=== PATIENT | female | born 1960 | race Hispanic/Latino ===

== ENCOUNTER → 2018-04-11 | Outpatient (CLI) | payer OTHER | END | disposition home or self-care (01) | LOC: RAH 13:08 | PROVIDERS: ATTEND Nurse Practitioner Family | DX: Z12.31 Encounter for screening mammogram for malignant neoplasm of breast (principal) | CPT/HCPCS: 77067 ==

== ENCOUNTER → 2020-07-28 | Outpatient (CLI) | payer OTHER | END | disposition home or self-care (01) | LOC: OIH 08:22 | PROVIDERS: ATTEND Internal Medicine | DX: M85.88 Other specified disorders of bone density and structure, other site (principal); M47.816 Spondylosis without myelopathy or radiculopathy, lumbar region; M19.91 Primary osteoarthritis, unspecified site; M25.78 Osteophyte, vertebrae | CPT/HCPCS: 72100; 72202 ==

== ENCOUNTER → 2020-12-28 | Outpatient (CLI) | payer OTHER | END | disposition home or self-care (01) | LOC: RAH 17:06 | PROVIDERS: ATTEND Nurse Practitioner Family | DX: Z12.31 Encounter for screening mammogram for malignant neoplasm of breast (principal) | CPT/HCPCS: 77067 ==

== ENCOUNTER → 2023-10-07 | Outpatient (CLI) | payer BC, OTHER | END | disposition home or self-care (01) | LOC: RAH 14:39 | PROVIDERS: ATTEND Nurse Practitioner Family | DX: Z12.31 Encounter for screening mammogram for malignant neoplasm of breast (principal) | CPT/HCPCS: 77067 ==

== ENCOUNTER → 2023-11-13 | Outpatient (CLI) | payer BC | END | disposition home or self-care (01) | LOC: RAH 15:01 | PROVIDERS: ATTEND Nurse Practitioner Family | DX: M47.812 Spondylosis without myelopathy or radiculopathy, cervical region (principal); M48.03 Spinal stenosis, cervicothoracic region; M54.2 Cervicalgia | CPT/HCPCS: 72141 ==

== ENCOUNTER → 2024-11-02 | Outpatient (CLI) | payer BC ==
[~2024-11-02] MED LIST: IOHEXOL-350 75 ML VIAL IV ONE
--- NOTE | 2024-11-02 16:59 | HMCIMG ---
CT ABDOMEN/PELVIS W/WO CONTRAS REASON: Unspecified abdominal pain COMPARISON: None. TECHNIQUE: Images are obtained from lung bases through the symphysis pubis before and after IV contrast, 75 cc Omnipaque 350. Oral contrast was performed as well. FINDINGS: Lung bases are clear. There are breast implants, only partially visualized, no evidence of rupture. There are no focal liver lesions. There are normal-appearing kidneys.. Spleen and pancreas appear unremarkable. The gallbladder appears normal as well. Bowel loops appear unremarkable. There has been a previous appendectomy. There is no evidence of free fluid or intraperitoneal air. There are no focal fluid collections. Aorta and retroperitoneum appear normal as do pelvic soft tissue structures. Uterus is been removed. The anterior abdominal wall is intact. 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 Vertebral bodies appear otherwise unremarkable as do remaining osseous structures. IMPRESSION: 1. No acute finding in the abdomen or pelvis. 2. 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 CT was performed with one or more following dose reduction techniques: automated exposure control, adjustment of the mA and kv according to patient's size, or use of a iterative reconstruction technique.
== END | disposition home or self-care (01) ==
LOC: RAH 09:57
PROVIDERS: ATTEND Nurse Practitioner Family
DX: R10.9 Unspecified abdominal pain (principal); Z98.82 Breast implant status; Z90.89 Acquired absence of other organs
CPT/HCPCS: 74178; Q9967

== ENCOUNTER → 2025-02-15 | Outpatient (CLI) | payer BC | END | disposition home or self-care (01) | LOC: RAH 10:39 | PROVIDERS: ATTEND Nurse Practitioner Family | DX: Z12.31 Encounter for screening mammogram for malignant neoplasm of breast (principal) | CPT/HCPCS: 77067 ==

== ENCOUNTER → 2025-03-31 | Outpatient (CLI) | payer BC ==
--- NOTE | 2025-03-31 11:22 | HMCIMG ---
BILATERAL BREAST ULTRASOUND: CLINICAL HISTORY: Follow-up for mammogram from 02/15/2025. Finding: Real-time examination of the both breasts demonstrates heterogeneous echotexture throughout both the breasts without evidence of focal solid or cystic masses. Both axillary region has benign-appearing lymph nodes on the right it measures 1.8 x 0.7 x 1.4 cm. On the left and measures 0.9 x 0.6 x 0.9 cm. Patient has bilateral breast implants in place IMPRESSION: Dense breasts with no mass seen. I would recommend annual mammography with tomography with bilateral breast sonogram. FINAL ASSESSMENT: ACR: BI-RAD- 2. Benign Finding.
--- NOTE | 2025-04-01 07:52 | HMCIMG ---
DIGITAL both DIAGNOSTIC MAMMOGRAM with Jada views Technique: The digital mammographic examination of bilateral breasts in craniocaudal, mediolateral oblique views along with CAD was obtained. Jada views of both breasts were also pain. Bilateral breast sonogram was also obtained. History: This is a 64 years year-old female 2, para2 Ab0 . Patient has no family history of breast cancer. Patient has no complaint Reference:Prior mammogram from 02/15/2025, 11/06/2023, 12/28/2020 and 04/11/2018 are available for comparison.. Breast composition: Breast composition C: The breasts are heterogeneously dense, which may obscure small masses. Finding: The digital mammographic examination of both breasts breasts in craniocaudal and mediolateral oblique view along with CAD demonstrates submuscular implant which appears to be intact. Jada views of both breasts to Mr. moderately heterogeneously nodular dense breast ultrasound demonstrate no lesion seen.. There is no evidence of any dendritic mass, cluster microcalcification or architectural distortion. The retromammary fat appears to be normal. IMPRESSION: Unchanged from prior mammography. NO RADIOGRAPHIC EVIDENCE OF MALIGNANT CHANGES. WE WOULD RECOMMEND ANNUAL FOLLOW UP WITH TOMOSYNTHESIS UNLESS OTHERWISE CLINICALLY INDICATED. FINAL ASSESSMENT: ACR: BI-RAD- 2. Benign Finding. NOTE: IF A WORK-UP OF THIS PATIENT LEADS TO A BIOPSY, PLEASE FORWARD A COPY OF THE PATHOLOGY REPORT TO OUR OFFICE REQUIRED BY [employer] MARCH 03, 1994. A NEGATIVE MAMMOGRAM SHOULD NOT PRECLUDE BIOPSY OF A CLINICALLY PALPABLE SUSPICIOUS MASS, 10% OF BREAST CANCERS ARE MAMMOGRAPHICALLY OCCULT. THIS MAMMOGRAPHY FACILITY IS FULLY ACCREDITED BY THE [employer]OD AND [employer]UG [employer] (FDA). THANK YOU FOR THIS REFERRAL.
== END | disposition home or self-care (01) ==
LOC: RAH 09:40
PROVIDERS: ATTEND Nurse Practitioner Family
DX: R92.2 Inconclusive mammogram (principal); R92.333 Mammographic heterogeneous density, bilateral breasts; Z98.82 Breast implant status
CPT/HCPCS: 77066

== ENCOUNTER → 2025-05-18 | Outpatient (CLI) | payer BC ==
--- NOTE | 2025-05-19 02:59 | HMCIMG ---
EXAM: Abdomen complete ultrasound. CLINICAL HISTORY: Thrombocytopenia. COMPARISON: None provided. TECHNIQUE: Grayscale and color Doppler images of the abdomen are submitted. FINDINGS: LIVER: The liver measures 13.0 cm in length and appears normal in size and echogenicity. No focal hepatic lesion is identified. GALLBLADDER: Gallbladder wall thickness measures 2 mm and appears within normal limits. No gallstones, sludge, or pericholecystic fluid are identified. Sonographic Amador sign is negative. COMMON BILE DUCT: The common bile duct measures 3 mm and is normal in caliber. PANCREAS: The pancreas appears normal. RIGHT KIDNEY: The right kidney measures 10.6 x 4.4 x 5.0 cm. No hydronephrosis, mass, or shadowing calculus is identified. LEFT KIDNEY: The left kidney measures 9.4 x 5.6 x 4.5 cm. No hydronephrosis, mass, or shadowing calculus is identified. SPLEEN: The spleen measures 7.3 x 1.5 x 1.6 cm and appears normal. INFERIOR VENA CAVA: The inferior vena cava appears within normal limits. ABDOMINAL AORTA: The abdominal aorta appears within normal limits in the visualized segments. IMPRESSION: 1. Normal abdominal ultrasound. 2. No hepatic, biliary, pancreatic, renal, or splenic abnormality identified. 3. No sonographic explanation for thrombocytopenia. /[place]
== END | disposition home or self-care (01) ==
LOC: RAH 09:04
PROVIDERS: ATTEND Internal Medicine Medical Oncology
DX: D75.838 Other thrombocytosis (principal)
CPT/HCPCS: 76700